=== PATIENT | male | born 1970 | race Caucasian/White ===

== ENCOUNTER 2024-12-21 09:13 | Outpatient (AMB) | payer OTHER, SELFPAY ==
--- NOTE | 2024-12-21 09:20 | AM.OFFWIN_ITS ---
Intake Vital Signs 12/21/24 09:22 12/21/24 09:53 Height 5 ft 9 in Weight 178 lb BMI 26.3 BP 110/72 Blood Pressure Location Rt brachial Position Sitting Pulse 86 71 Pulse Source Pulse Oximeter Auscultation Temp 97.9 F Temp Source Oral Pulse Oximetry (%) 96 98 Oxygen Delivery Method Room Air Room Air Intake Visit Reasons: est/rsv/covid? sick/fever/cough/loss of taste Patient Tobacco Use Status: Current everyday Tobacco user Allergies No Known Allergies Allergy (Verified 12/21/24 09:31) Medication List - [facility] No Known Home Meds Do you need a note to return to daycare/school/sports/work: Yes HPI HPI Comments History of Present Illness Details The patient is a 54-year-old male presenting with respiratory symptoms and loss of smell and taste. The patient began experiencing symptoms, reminiscent of an oncoming cold, on a Saturday morning. By lunchtime, his energy levels had significantly decreased, compelling him to leave work early. 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 Over the subsequent days, his condition progressed, leading to an absence of appetite on and Saturday, and extreme fatigue, confining him to bed. By Saturday, the patient reported a minimal improvement in energy levels, allowing him to be moderately active. The following day, he was capable of inter acting with his and son, who reportedly experienced similar symptoms during the same period. The patient administered ruvk-few-mhxrkdz medications such as DayQuil and NyQuil with minimal relief and utilized Tylenol to manage his son's fever. There was an absence of any reported flu vaccination for the current season. Of particular concern was the recent loss of his sense of taste and smell, which the patient described as unprecedented even in previous COVID-19 incidents. 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 - Recently experienced respiratory illne ss along with his and son. - Family use of aoeo-bdd-dqjseik medicat ions like DayQuil, NyQuil, and Tylenol for symptom management and fever control. Physical Exam General: Awake, alert. No apparent distress Eyes: Sclera and conjunctiva clear bilaterally Nose: scant clear drainage, turbinates wnl, no sinus tenderness w palp Ears: Tympanic membranes intact and clear bilaterally Throat: Moist mucosa membrane, pharynx within normal limits Cardiovascular: Regular rate and rhythm Respiratory: ins/exp wheeze throughout, hacking cough during exam, no distress. After updraft, pt reports feeling better, improved air flow throughout, marked decrease in wheezing. NO coughing Results - Diagnostic test (influenza, COVID-19, RSV swab): Sent to the hospital laboratory for analysis. CXR ordered Discussion Notes I informed the patient of the potential viral etiologies that could be responsible for the presented symptoms, including influenza, COVID-19, and RSV. I discussed the possible use of a nebulizer-like steam treatment to alleviate wheezing and congestion, describing it as a therapeutic measure to reduce airway inflammation. The patient consented to this treatment option. Additionally, we discussed the risks associated with untreated or progressing viral infections and the importance of monitoring symptoms, especially given the history of his previous COVID-19 infections. I emphasized the importance of receiving diagnostic test results to determine the exact viral cause. The patient was advised to continue monitoring his symptoms and to return for further evaluation if there was no improvement or worsening of his condition. Plan Given the symptomatology and current respiratory condition of the patient, we will focus on determining the viral etiology through laboratory testing for in fluenza, COVID-19, and RSV. Interim management will involve symptomatic relief through the use of aykj-enu-jxqydbv medications, such as DayQuil and NyQuil, for managing general symptoms and Tylenol for fever reduction. Due to the presence of wheezing and congestion, a nebulizer-like steam treatment has been initiated to improve airway patency. It is paramount to monitor the patient's overall health and symptom progression, especially given the reported anosmia and ageusia, which are associated with COVID-19 in particular. Further management will be based on the diagnostic results, with particular attention to the patient's previous infections and overall immune status. We will prioritize confirming the viral diagnosis to tailor the most appropriate treatment plan and provide specific guidance on preventative measures, including potential future vaccination recommendations. CXR to r/o PNA Pt will be called later w/ results and tx plan amended as needed RTO edu provided Patient was informed and verbally consented to the use of an ambient scribe for clinic note documentation during this visit. Total time spent caring for the patient today was 45 minutes. This includes time spent before the visit reviewing the chart, time spent during the visit, and time spent after the visit on documentation, reviewing laboratory results, diagnostic imaging, medications, performing a medically necessary evaluation, counseling on diagnoses, care coordination, ordering appropriate tests, ordering appropriate medications, review of tests performed by other providers, reporting test results with the patient, communication with other healthcare providers. PFSH Social History Patient Tobacco Use Status: Current everyday Tobacco user Physical Exam Vital Signs: Last Vital Signs Temp 97.9 F 12/21/24 09:22 Pulse 86 12/21/24 09:22 BP 110/72 12/21/24 09:22 Pulse Ox 96 12/21/24 09:22 Oxygen Delivery Method Room Air 12/21/24 09:22 BMI result Body Mass Index 26.3 Office Procedures Nebulizer Treatment Nebulizer Treatment 53351-Bprikcmew/MDI RX initial, or Nebulizer Subsequent Treatment Office Meds ipratropium 0.5 mg-albuterol 3 mg (2.5 mg base)/3 mL nebulization soln Performing Provider: MELISSA Mark Performing Location: [facility] Administered by: MELISSA Mark on 12/21/24 09:40 Dose Route Admin Location Dispensed Lot Number Expiration Date [facility] Nightman 3 mL inhalation office 3 mL [id number] 04/10/26 97489-123-13 [employer] Assessment & Plan Assessment & Plan (1) Flu-like symptoms: Code(s): R68.89 - Other general symptoms and signs (2) Wheezing: Code(s): R06.2 - Wheezing Plan . Orders: Orders SARS-CoV2/FLU/RSV Today R09.89 - Other specified symptoms and signs involving the circulatory and respiratory systems, R68.89 - Other general symptoms and signs AMB Nebulizer Treatment Today R06.2 - Wheezing, R68.89 - Other general symptoms and signs XR chest 2V Today R06.2 - Wheezing, R68.89 - Other general symptoms and signs Medications: New ipratropium-albuterol 20-100 mcg/actuation (Combivent Respimat) space evenly during waking hours 1 puff inhalation QID 4 grams 0RF prednisone 20 mg PO DAILY 5 tabs 0RF Patient Instructions: Patient Instructions - Continue using DayQuil and NyQuil as needed for symptom management. - Utilize Tylenol to manage any occurrence of fever. - Undergo the prescribed steam treatment to alleviate respiratory symptoms. - Await laboratory results to confirm the specific viral infection. - Monitor symptoms closely and seek further medical evaluation if symptoms worsen or do not improve. - combivent and prednisone CXR today at [address] [place] [address] Coding Level of Care Code Est Pt Level 5 (67991) Diagnoses Flu-like symptoms R68.89 Wheezing R06.2 CPT Codes Nebulizer Treatment - Nebulizer Treatment, initial or subsequent: 20250- Nebulizer/MDI RX initial, or Nebulizer Subsequent Treatment ([id number])
[2024-12-21 09:22] VITALS: BP 110/72; PULSE 86; TEMP 36.6; O2SAT 96; BMI 26.3
--- OUTSIDE RECORDS SUMMARY | 2024-12-21 09:43 | XMS_ITS | Continuity of Care Document ---
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 It does not include entries that were removed or entered in error. Problem Status Onset Date Problem Type Date of Resolution Comments Source visit for: services physical Active Condition DoD sensorineural hearing loss bilateral Active Condition DoD visit for: ears / hearing exam Active Condition DoD visit for: occupational health / fitness exam Active Condition DoD Immunizations Combined list of available immunizations from the Department of Defense and Veterans Affairs facilities. 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 purified surface antigen)-reti red CODE 1 2009 [id number] [employer] (CSL) complet ed influenza virus vaccine, split virus (incl. purified surface antigen)- retired CODE [facility] hepatitis B vaccine, adult dosage 3 2009 [id number] 43 SmithKline (SKB) complet ed hepatitis B vaccine, adult dosage DoD Novel influenza-H1N 1-09, injectable 1 2009 [id number] 127 Novartis AlphaNationtica l Xi. (NOV) complet ed Novel influenza -D5P7-97, injectabl e DoD influenza virus vaccine, split virus (incl. purified surface antigen)-reti red CODE 1 2008 [id number] 15 [employer] (CSL) complet ed influenza virus vaccine, split virus (incl. purified surface antigen)- retired CODE DoD hepatitis B vaccine, adult dosage 2 2008 [id number] 43 Merck (MSD) complet ed hepatitis B vaccine, adult dosage DoD influenza virus vaccine, split virus (incl. purified surface antigen)-reti red CODE 1 2007 [id number] 15 Ludeiine (SKB) complet ed influenza virus vaccine, split virus (incl. purified surface antigen)- retired CODE DoD hepatitis B vaccine, adult dosage 1 2007 [id number] 43 SmithChai Energyine (SKB) complet ed hepatitis B vaccine, adult dosage DoD hepatitis A vaccine, adult dosage 2 2007 [id number] 52 SmithKline (SKB) complet ed hepatitis A vaccine, adult dosage DoD hepatitis A vaccine, adult dosage 1 2006 [id number] 52 Ludeiine (SKB) complet ed hepatitis A vaccine, adult dosage DoD influenza virus vaccine, live, attenuated, for intranasal use 1 2006 [id number] mySBX. (MED) complet ed influenza virus vaccine, live, attenuate d, for intranasa l use DoD measles, mumps and rubella virus vaccine 0 2002 UNK 03 Unknown (UNK) comple t ed measles, mumps and rubella virus vaccine DoD tetanus and diphtheria toxoids, adsorbed, preservative free, for adult use (2 Lf of tetanus toxoid and 2 Lf of diphtheria toxoid) 0 2002 UNK 09 Unknown (UNK) comple t ed tetanus and diphtheri a toxoids, adsorbed, preservat boris free, for adult use (2 Lf of tetanus toxoid and 2 Lf of diphtheri a toxoid) DoD meningococcal polysaccharid e vaccine (MPSV4) 0 2002 UNK 32 Unknown (UNK) comple t ed meningoco ccal polysacch aride vaccine (MPSV4) DoD trivalent poliovirus vaccine, live, oral 0 1990 UNK 02 Unknown (UNK) comple t ed trivalent polioviru s vaccine, live, oral DoD Encounters Combined list of: 1) Encounters from Department of Veterans Affairs facilities going backup to the last 18 months, not all [place] inpatient encounters are included; 2) Encounters from the Department of Defense facilities going backup to 280 months. Location Location Details Encounter Type Encounter Number Reason For Visit Attending Provider ADM Date DC Date Status [facility] [place]) OUTPATIENT [id number] H-3 YU KNOX 12/13 Released w/o Limitations [facility] [place] [facility] [place]) [place] [id number] [facility] hearing exam BAILEY CALVILLO 12/14 Released w/o Limitations [facility] [place] [facility]) [place] [id number] post deploy BAILEY CALVILLO 01/12 Released w/o Limitations [facility] [place] Procedures Combined list of: 1) Procedures from Department of Veterans Affairs facilities going back up to thelast 18 months, not all VA non-surgical procedures are included; 2) All procedures from the Department of Defense facilities. Procedure Procedure Type Code Date Perfomer Comments Sour e PURE TONE AUDIOMETRY (THRESHOLD); AIR ONLY 01/12/2010 [facility] IMMUNIZATION ADMINISTRATION (INCLUDES PERCUTANEOUS, INTRADERMAL, SUBCUTANEOUS, OR INTRAMUSCULAR INJECTIONS); 1 VACCINE (SINGLE OR COMBINATION VACCINE/TOXOID) 12/05/2009 [facility] PURE TONE AUDIOMETRY (THRESHOLD); AIR ONLY 12/14/2008 [facility] TYMPANOMETRY (IMPEDANCE TESTING) 12/13/2008 [facility] Threshold Audiogram (Pure Tone) Threshold Audiogram (Pure Tone) 08003 01/12/2010 SHELLI IVORY [facility] Threshold Audiogram (Pure Tone) Threshold Audiogram (Pure Tone) 21270 12/14/2008 SHELLI IVORY [facility] Tympanometry Tympanometry 31355 12/13/2008 YU KNOX [facility] Comprehensive Audiometry Comprehensive Audiometry 13514 12/13/2008 YU KNOX [facility] Social History Combined list of available smoking, tobacco, and other social history from Department of Defense and Veterans Affairs facilities. Social History Type Response Date Comment Sour e This section is an empty social history section. DoD
[2024-12-21 09:53] VITALS: PULSE 71; O2SAT 98
== END 2024-12-21 10:01 | disposition home or self-care (01) ==
LOC: HO.HMCWIW 09:13
PROVIDERS: Visit Provider Nurse Practitioner Family
DX: R06.2 Wheezing (principal); R68.89 Other general symptoms and signs

== ENCOUNTER 2024-12-21 09:13 | Outpatient (REF) | payer OTHER, SELFPAY ==
--- NOTE | ~2024-12-21 | XR_ITS ---
EXAMINATION: XR CHEST 2 VIEWS HISTORY: R68.89 - Other general symptoms and signs COMPARISON: There are no prior studies for comparison. FINDINGS: PA and lateral views of the chest are submitted. The lungs are expanded and clear. There is no pleural effusion, pneumothorax, or pulmonary vascular congestion. The heart is normal in size. There is degenerative disc disease of the spine. XR/XR chest 2V IMPRESSION: Clear lungs. Electronically signed by: Jorge Castellano MD 12/21/2024 10:54 AM BUTCH
--- OUTSIDE RECORDS SUMMARY | 2024-12-21 11:26 | XMS_ITS | Continuity of Care Document ---
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 purified surface antigen)-reti red CODE 1 2009 [id number] [employer] (CSL) complet ed influenza virus vaccine, split virus (incl. purified surface antigen)- retired CODE [facility] hepatitis B vaccine, adult dosage 3 2009 [id number] 43 SmithKline (SKB) complet ed hepatitis B vaccine, adult dosage DoD Novel influenza-H1N 1-09, injectable 1 2009 [id number] 127 Novartis WorkCasttica l Xi. (NOV) complet ed Novel influenza -D1W1-50, injectabl e DoD influenza virus vaccine, split virus (incl. purified surface antigen)-reti red CODE 1 2008 [id number] 15 [employer] (CSL) complet ed influenza virus vaccine, split virus (incl. purified surface antigen)- retired CODE [facility] hepatitis B vaccine, adult dosage 2 2008 [id number] 43 Merck (MSD) complet ed hepatitis B vaccine, adult dosage DoD influenza virus vaccine, split virus (incl. purified surface antigen)-reti red CODE 1 2007 [id number] 15 kissnofrogine (SKB) complet ed influenza virus vaccine, split virus (incl. purified surface antigen)- retired CODE Do[facility] hepatitis B vaccine, adult dosage 1 2007 [id number] 43 SmithRamTiger Fitnessine (SKB) complet ed hepatitis B vaccine, adult dosage DoD hepatitis A vaccine, adult dosage 2 2007 [id number] 52 SmithKline (SKB) complet ed hepatitis A vaccine, adult dosage DoD hepatitis A vaccine, adult dosage 1 2006 [id number] 52 kissnofrogine (SKB) complet ed hepatitis A vaccine, adult dosage DoD influenza virus vaccine, live, attenuated, for intranasal use 1 2006 [id number] [employer]under. (MED) complet ed influenza virus vaccine, live, [...] to the last 18 months, not all [place] inpatient encounters are included; 2) Encounters from the Department of Defense facilities going backup to 280 months. Location Location Details Encounter Type Encounter Number Reason For Visit Attending Provider ADM Date DC Date Status [facility] [place]) OUTPAT[place] [id number] H-3 YU KNOX 12/13 [facility]ased w/o Limitations [facility] [place] [facility] [place]) [place] [id number] SR[facility] hearing exam BAILEY CALVILLO 12/14 [facility] w/o Limitations [facility] [place] [facility] [place]) [place]PAT[place] [id number] post deploy BAILEY CALVILLO 01/12 [facility]/o Limitations [facility] [place] Procedures Combined list of: 1) Procedures from Department of Veterans Affairs facilities going back up to thelast 18 months, not all VA non-surgical procedures are included; 2) All procedures from the Department of Defense facilities. Procedure Procedure Type Code Date Perfomer Comments Sour e PURE TONE AUDIOMETRY (THRESHOLD); AIR ONLY 01/12/2010 [facility] IMMUNIZATION ADMINISTRATION (INCLUDES PERCUTANEOUS, INTRADERMAL, SUBCUTANEOUS, OR INTRAMUSCULAR INJECTIONS); 1 VACCINE (SINGLE OR COMBINATION VACCINE/TOXOID) 12/05/2009 [facility] PURE TONE AUDIOMETRY (THRESHOLD); AIR ONLY 12/14/2008 [facility] TYMPANOMETRY (IMPEDANCE TESTING) 12/13/2008 [facility] Threshold Audiogram (Pure Tone) Threshold Audiogram (Pure Tone) [id number] 01/12/2010 SHELLI IVORY [facility] Threshold Audiogram (Pure Tone) Threshold Audiogram (Pure Tone) 96710 12/14/2008 SHELLI IVORY [facility] Tympanometry Tympanometry 76609 12/13/2008 YU KNOX [facility] Comprehensive Audiometry Comprehensive Audiometry 36884 12/13/2008 YU KNOX [facility] Social History Combined list of available smoking, tobacco, and other social history from Department of Defense and Veterans Affairs facilities. Social History Type Response Date Comment Sour e This section is an empty social history section. DoD
[2024-12-21 12:34] LABS: Influenza A PCR POSITIVE (Negative); Influenza B PCR NEGATIVE (Negative); Resp Syncy Virus RNA Qual PCR NEGATIVE (Negative); SARS COV2 PCR INHOUSE NEGATIVE (Negative)
== END 2024-12-21 09:14 | disposition home or self-care (01) ==
LOC: HO.HMGCX 09:13
PROVIDERS: Visit Provider Nurse Practitioner Family
DX: R68.89 Other general symptoms and signs (principal); R06.2 Wheezing; R09.89 Other specified symptoms and signs involving the circulatory and respiratory systems; R05.1 Acute cough
CPT/HCPCS: 0241U; 71046; 94640

== ENCOUNTER → 2024-12-21 10:36 | Outpatient (BNV) | payer OTHER, SELFPAY | PROVIDERS: Visit Provider Radiology Diagnostic Radiology | DX: R68.89 Other general symptoms and signs (principal) | CPT/HCPCS: 71046 ==